=== PATIENT | male | born 1965 | race Caucasian/White ===

== ENCOUNTER → 2017-02-09 | Outpatient (CLI) | payer BC ==
--- NOTE | 2017-02-09 08:41 | REP ---
Chest x-ray: Two views. History: Cough . Comparison study: No comparison study . Findings: The lungs are well inflated and free of infiltrate. The pleural angles are sharp. The heart size is normal. Pulmonary vasculature is not increased. No significant bony abnormality is seen. There are some degenerative changes in the thoracic spine. Impression: Negative chest x-ray. Signed by Ramos Odom MD 02/09/2017 08:33 A
[2017-02-09 09:05] LABS: BASO % 0.6 % (0.0-1.0); EOS # 0.3 K/mm3 (0.0-0.50); EOS % 4.8 % (0.0-3.0); LARGE UNSTAINED CELL # 0.2 K/mm3 (0.0-0.4); LYMPH # 2.3 K/mm3 (1.5-4.5); LYMPH % 30.8 % (24.0-44.0); MEAN CORPUSCULAR HEMOGLOBIN 33.2 pg (27.0-33.0); MEAN CORPUSCULAR HGB CONC 34.1 g/dl (32.0-36.5); MEAN CORPUSCULAR VOLUME 97.2 fl (80.0-96.0); MONO # 0.3 K/mm3 (0.0-0.8); MONO % 4.8 % (0.0-5.0); NEUTROPHILS # 3.8 K/mm3 (1.8-7.7); PLATELET COUNT, AUTOMATED 221 k/mm3 (150-450); RED CELL DISTRIBUTION WIDTH 11.6 % (11.5-14.5); WHITE BLOOD COUNT 6.7 K/mm3 (4.0-10.0)
[2017-02-09 09:38] LABS: ALBUMIN 3.4 GM/DL (3.2-5.2); ALBUMIN/GLOBULIN RATIO 1.06 (1.00-1.93); ALKALINE PHOSPHATASE 66 U/L (45-117); ALT/SGPT 32 U/L (12-78); ANION GAP 6 MEQ/L (8-16); AST/SGOT 20 U/L (15-37); BILIRUBIN,TOTAL 0.5 MG/DL (0.2-1.0); BLOOD UREA NITROGEN 12 MG/DL (7-18); CALCIUM LEVEL 8.8 MG/DL (8.5-10.1); CARBON DIOXIDE LEVEL 30 MEQ/L (21-32); CHLORIDE LEVEL 106 MEQ/L (98-107); CHOLESTEROL LEVEL 232 MG/DL (<200); CREATININE FOR GFR 0.88 MG/DL (0.70-1.30); FREE T4 0.74 NG/DL (0.76-1.46); GLOMERULAR FILTRATION RATE > 60.0 (>56); GLUCOSE, FASTING 98 MG/DL (70-105); POTASSIUM SERUM 4.3 MEQ/L (3.5-5.1); SODIUM LEVEL 142 MEQ/L (136-145); TOTAL PROTEIN 6.6 GM/DL (6.4-8.2); TRIGLYCERIDES LEVEL 128 MG/DL (<150)
== END ==
LOC: M LAB 08:07
PROVIDERS: ATTEND Nurse Practitioner Family
DX: Z00.00 Encounter for general adult medical examination without abnormal findings (principal); R05 Cough; R63.4 Abnormal weight loss; E78.5 Hyperlipidemia, unspecified; R03.0 Elevated blood-pressure reading, without diagnosis of hypertension; Z87.891 Personal history of nicotine dependence

== ENCOUNTER → 2017-03-27 | Outpatient (CLI) | payer BC ==
[~2017-03-27] VITALS: Ht 175.3 cm; Wt 70.3 kg
[~2017-03-27] MED LIST: ATOR40TA PO; NS 1,000 ML IV SCH
--- NOTE | 2017-03-27 12:31 | ROOR ---
Patient Name: Trent Florez Procedure Date: 03/27/2017 12:07 PM Date of : 1965 Age: 51 Room: [facility] Gender: Male Note Status: Finalized Procedure: Upper GI endoscopy Indications: Dysphagia, Heartburn Providers: Pancho BEE MD Referring MD: Priscilla Burroughs NP Requesting Provider: Medicines: Monitored Anesthesia Care Complications: No immediate complications. Procedure: Pre-Anesthesia Assessment: - The heart rate, respiratory rate, oxygen saturations, blood pressure, adequacy of pulmonary ventilation, and response to care were monitored throughout the procedure. The Endoscope was introduced through the mouth, and advanced to the second part of duodenum. The upper GI endoscopy was accomplished without difficulty. The patient tolerated the procedure well. Findings: The examined esophagus was normal. No endoscopic abnormality was evident in the esophagus to explain the patient's complaint of dysphagia. It was decided, however, to proceed with dilation of the entire esophagus. The scope was withdrawn. Dilation was performed with a Griffin dilator with no resistance at 54 Fr. The dilation site was examined following endoscope reinsertion and showed no change. The entire examined stomach was normal. A single submucosal nodule with a localized distribution was found at the junction of first to second portion of the duodenum. Biopsies were taken with a cold forceps for histology. The exam of the duodenum was otherwise normal. Impression: - Normal esophagus.- No endoscopic esophageal abnormality to explain patient's dysphagia. Esophagus dilated with 54 F griffin dialtor - Normal stomach. - Submucosal nodule (8-10 mm) found in the proximal second portion of the duodenum. Biopsied. - The duodenum was otherwise normal. Recommendation: - Await pathology results. - Observe patient's clinical course. - Telephone endoscopist for pathology results in 2 weeks. Pancho Bee MD Pancho BEE MD 03/27/2017 12:30:39 PM This report has been signed electronically. Number of Addenda: 0 Note Initiated On: 03/27/2017 12:07 PM Estimated Blood Loss: Estimated blood loss: none.
--- NOTE | 2017-03-27 12:41 | ROOR ---
Patient Name: Trent Florez Procedure Date: 03/27/2017 12:08 PM Date of : 1965 Age: 51 Room: [facility] Gender: Male Note Status: Finalized Procedure: Colonoscopy Indications: Screening for colorectal malignant neoplasm Providers: Pancho BEE MD Referring MD: Priscilla Burroughs NP Requesting Provider: Medicines: Monitored Anesthesia Care Complications: No immediate complications. Procedure: Pre-Anesthesia Assessment: - The heart rate, respiratory rate, oxygen saturations, blood pressure, adequacy of pulmonary ventilation, and response to care were monitored throughout the procedure. The Colonoscope was introduced through the anus and advanced to the cecum, identified by appendiceal orifice and ileocecal valve. The colonoscopy was performed without difficulty. The patient tolerated the procedure well. The quality of the bowel preparation was good. Findings: The perianal and digital rectal examinations were normal. Small Internal Hemorrhoids. The entire examined colon appeared normal on direct and retroflexion views. Impression: - Small Internal Hemorrhoids. - The colon is normal on direct and retroflexion views. - No specimens collected. Recommendation: - Repeat colonoscopy in 10 years for screening purposes. Pancho Bee MD Pancho BEE MD 03/27/2017 12:40:40 PM This report has been signed electronically. Number of Addenda: 0 Note Initiated On: 03/27/2017 12:08 PM Estimated Blood Loss: Estimated blood loss: none.
[2017-03-27 13:05] VITALS: BP 146/85
== END | disposition home or self-care (01) ==
LOC: M OPP 11:40
PROVIDERS: ATTEND Internal Medicine Gastroenterology
DX: Z12.11 Encounter for screening for malignant neoplasm of colon (principal); K64.8 Other hemorrhoids; R13.10 Dysphagia, unspecified; R12 Heartburn; K31.89 Other diseases of stomach and duodenum; E78.5 Hyperlipidemia, unspecified; F41.9 Anxiety disorder, unspecified; G47.9 Sleep disorder, unspecified; Z87.891 Personal history of nicotine dependence; Z79.899 Other long term (current) drug therapy
CPT/HCPCS: 43239; 43450; 88305; 99156; 99157; G0121

== ENCOUNTER → 2017-04-13 | Outpatient (CLI) | payer BC ==
[~2017-04-13] MED LIST changes: -NS 1,000 ML IV SCH
[2017-04-13 17:36] LABS: ALBUMIN 3.6 GM/DL (3.2-5.2); ALBUMIN/GLOBULIN RATIO 1.09 (1.00-1.93); ALKALINE PHOSPHATASE 79 U/L (45-117); ALT/SGPT 48 U/L (12-78); ANION GAP 5 MEQ/L (8-16); AST/SGOT 20 U/L (15-37); BILIRUBIN,TOTAL 0.6 MG/DL (0.2-1.0); BLOOD UREA NITROGEN 7 MG/DL (7-18); CALCIUM LEVEL 8.8 MG/DL (8.5-10.1); CARBON DIOXIDE LEVEL 31 MEQ/L (21-32); CHLORIDE LEVEL 105 MEQ/L (98-107); CREATININE FOR GFR 0.88 MG/DL (0.70-1.30); GLOMERULAR FILTRATION RATE > 60.0 (>56); GLUCOSE, FASTING 73 MG/DL (70-105); POTASSIUM SERUM 4.4 MEQ/L (3.5-5.1); SODIUM LEVEL 141 MEQ/L (136-145); TOTAL PROTEIN 6.9 GM/DL (6.4-8.2)
== END ==
LOC: M WUC 09:11
PROVIDERS: ATTEND Nurse Practitioner Family
DX: Z12.5 Encounter for screening for malignant neoplasm of prostate (principal); E78.5 Hyperlipidemia, unspecified
CPT/HCPCS: 36415; 80053; G0103

== ENCOUNTER → 2017-04-25 | Outpatient (CLI) | payer BC ==
[~2017-04-25] MED LIST changes: +E-Z-GAS II EFFERVESCENT PACKET (SODIUM BICARB./CITRIC ACID/SIMETHICONE) As Ordered ONE; +E-Z-HD 98% w/w 340GM SUSP BTL As Ordered ONE; +E-Z-PAQUE 96% w/w SUSP 176GM BTL As Ordered ONE
== END ==
LOC: M RAD 08:54
PROVIDERS: ATTEND Physician Assistant Medical
DX: R13.10 Dysphagia, unspecified (principal)

== ENCOUNTER → 2017-04-28 | Outpatient (CLI) | payer BC ==
--- NOTE | 2017-04-28 16:53 | REP ---
Esophagram The procedure was performed under the direct supervision of Dr. Odom. The images were reviewed with Dr. Odom. A single view PA chest x-ray is submitted as a assembler tubing film. The superior mediastinal structures are midline. The heart size is within normal limits. The lungs are clear. Liquid barium and gas producing granules were given in the erect position as well as liquid barium in the prone oblique positions in order to perform a double contrast esophagram examination. The oral and pharyngeal stages of deglutition are unremarkable. Esophageal transport is prompt and efficient and there is no esophagitis, stricture, mucosal ring or hiatal hernia. Gastroesophageal reflux is not demonstrated on this examination. Impression: essentially unremarkable double contrast esophagram examination. 58 seconds of fluoro time was utilized for this procedure. Reviewed by SOHAIL Freire 04/28/2017 03:22 PSigned by Ramos Odom MD 04/28/2017 04:43 P
== END ==
LOC: M RAD 07:55
PROVIDERS: ATTEND Physician Assistant Medical
DX: R13.10 Dysphagia, unspecified (principal)

== ENCOUNTER → 2017-05-02 | Outpatient (CLI) | payer BC ==
[~2017-05-02] VITALS: Ht 175.3 cm; Wt 74.4 kg
[~2017-05-02] MED LIST changes: -E-Z-GAS II EFFERVESCENT PACKET (SODIUM BICARB./CITRIC ACID/SIMETHICONE) As Ordered ONE; -E-Z-HD 98% w/w 340GM SUSP BTL As Ordered ONE; -E-Z-PAQUE 96% w/w SUSP 176GM BTL As Ordered ONE; +LIDOCAINE 2% INJ 100 MG/5 ML SDV (FOR ANES.) As Ordered ONE; +NS 1,000 ML IV ONE; +PROPOFOL 200 MG/20 ML VIAL As Ordered ONE; +fentaNYL 100 MCG/2 ML INJECTION (J3010) As Ordered ONE
--- NOTE | 2017-05-02 12:00 | ROOR ---
Patient Name: Trent Florez Procedure Date: 05/02/2017 11:34 AM Date of : 1965 Age: 51 Room: [facility] Gender: Male Note Status: Finalized Procedure: Upper GI endoscopy Indications: Dysphagia Providers: Pancho BEE MD Referring MD: Priscilla Burroughs NP Requesting Provider: Medicines: Monitored Anesthesia Care Complications: No immediate complications. Procedure: Pre-Anesthesia Assessment: - The heart rate, respiratory rate, oxygen saturations, blood pressure, adequacy of pulmonary ventilation, and response to care were monitored throughout the procedure. The Endoscope was introduced through the mouth, and advanced to the second part of duodenum. The upper GI endoscopy was accomplished without difficulty. The patient tolerated the procedure well. Findings: No endoscopic abnormality was evident in the esophagus to explain the patient's complaint of dysphagia. It was decided, however, to proceed with dilation of the entire esophagus. The scope was withdrawn. Dilation was performed with a Griffin dilator with no resistance at 56 Fr. The dilation site was examined and showed no change. This was biopsied with a cold forceps for evaluation of eosinophilic esophagitis. The entire examined stomach was normal. A single 8 to 9 mm mucosal nodule with a localized distribution was found in the second portion of the duodenum. Biopsies were taken with a cold forceps for histology. Impression: - Normal esophagus. - No endoscopic esophageal abnormality to explain patient's dysphagia. Esophagus dilated with 56 F griffin dilator and Biopsied. - Normal stomach. - Mucosal/submucosal nodule again found in the duodenum. Unroofed and re-Biopsied. Recommendation: - Observe patient's clinical course. - Telephone endoscopist for pathology results in 2 weeks. - Continue present medications. Pancho Bee MD Pancho BEE MD 05/02/2017 12:00:14 PM This report has been signed electronically. Number of Addenda: 0 Note Initiated On: 05/02/2017 11:34 AM Estimated Blood Loss: Estimated blood loss: none.
[2017-05-02 12:25] VITALS: BP 13/84
== END | disposition home or self-care (01) ==
LOC: M OPP 10:41
PROVIDERS: ATTEND Internal Medicine Gastroenterology
DX: R13.10 Dysphagia, unspecified (principal); K31.89 Other diseases of stomach and duodenum; E78.5 Hyperlipidemia, unspecified; Z86.59 Personal history of other mental and behavioral disorders; F17.210 Nicotine dependence, cigarettes, uncomplicated; Z79.899 Other long term (current) drug therapy
CPT/HCPCS: 43239; 43450; 88305; J3010

== ENCOUNTER → 2017-06-11 | Outpatient (CLI) | payer BC ==
[~2017-06-11] MED LIST changes: -ATOR40TA PO; +ATOR40TA75 PO; +GASTROGRAFIN SOLUTION 30ML (Q9963) As Ordered ONE; +ISOVUE-370 76% 100ML VIAL (Q9967) As Ordered ONE; -LIDOCAINE 2% INJ 100 MG/5 ML SDV (FOR ANES.) As Ordered ONE; -NS 1,000 ML IV ONE; -PROPOFOL 200 MG/20 ML VIAL As Ordered ONE; -fentaNYL 100 MCG/2 ML INJECTION (J3010) As Ordered ONE
--- NOTE | 2017-06-11 16:22 | REP ---
CT abdomen pelvis without and with IV contrast: There are no comparisons. Within the visualized lung clark. There are is an 8 mm nodule in the posterior sulcus of the left lung on image 13 and an 8 ml pleural-based nodule in the posterior sulcus of the right lung. These nodules are not visible on the PA and lateral plain film study dated 02/09/2017. The hepatic parenchyma is homogeneous on both phases of the study. The gallbladder, pancreas and spleen are normal size, homogeneous and unremarkable. The adrenals are unremarkable. The kidneys are unremarkable. The abdominal aorta is unremarkable. There is no retroperitoneal adenopathy. There is no mesenteric adenopathy or ascites. There is no bowel distension. Pelvis: The appendix has a normal appearance. The bladder is unremarkable. Prostatic of this are incidentally noted. There is no adenopathy or ascites. There are no lytic, blastic or destructive skeletal changes. Impression: There is a nodule in the lower lobe of the left lung and a nodule in the lower lobe of the right lung. I would recommend chest CT for follow-up. Otherwise, essentially negative CT of the abdomen and pelvis. Signed by Fausto Burris MD 06/11/2017 04:14 P
== END ==
LOC: M RAD 13:45
PROVIDERS: ATTEND Physician Assistant Medical
DX: R63.4 Abnormal weight loss (principal); R91.8 Other nonspecific abnormal finding of lung field; R10.10 Upper abdominal pain, unspecified; R63.0 Anorexia
CPT/HCPCS: 74178; Q9963; Q9967

== ENCOUNTER → 2017-07-02 | Outpatient (CLI) | payer BC ==
[~2017-07-02] MED LIST changes: -GASTROGRAFIN SOLUTION 30ML (Q9963) As Ordered ONE
--- NOTE | 2017-07-02 15:36 | REP ---
CT of the chest with IV contrast: Comparison is a CT of the abdomen, dated 06/11/2017. There is a nodule in the deep posterior sulcus of the right lung measuring 8 mm in diameter. Just lateral to this is a smaller nodule measuring 3 mm in diameter. There is a nodule in the deep sulcus of the left lung measuring 9 mm in diameter. There are no other nodules or masses. There are no acute infiltrates or effusions. There is a borderline enlarged subcarinal mediastinal node measuring a 1 cm in short axis diameter. There is no other mediastinal adenopathy. There is no hilar adenopathy. The there is no axillary adenopathy. The thoracic aorta is unremarkable. Cardiac size is normal. The visualized upper abdominal contents are unremarkable. The largest of the lung nodule is a category 4A lesion with probability of malignancy 5- 15%. Recommendation is for 3-month follow-up chest CT. Consider PET scan. Signed by Fausto Burris MD 07/02/2017 03:26 P
== END ==
LOC: M RAD 14:36
PROVIDERS: ATTEND Physician Assistant Medical
DX: R91.8 Other nonspecific abnormal finding of lung field (principal); R93.3 Abnormal findings on diagnostic imaging of other parts of digestive tract; R63.4 Abnormal weight loss; R63.0 Anorexia
CPT/HCPCS: 71260; Q9967

== ENCOUNTER → 2017-10-10 | Outpatient (CLI) | payer BC ==
[~2017-10-10] MED LIST changes: -ISOVUE-370 76% 100ML VIAL (Q9967) As Ordered ONE
--- NOTE | 2017-10-15 10:16 | REP ---
Clinical: Follow up pulmonary nodule. History of emphysema. Comparison: 07/02/2017. Findings: Mild chronic interstitial changes and bronchiectasis with few small scattered bullae and blebs remain essentially unchanged. A 3 mm noncalcified nodule along the periphery of the right upper lobe (image 48) is again identified and essentially stable. 8 mm and 3 mm noncalcified nodules in the deep right sulcus along with 9 mm noncalcified nodule in the left lower lobe (image 82) remains stable. No new acute nodule or mass lesion is appreciated. No consolidation, effusion, pneumothorax. Mediastinal and hilar lymph nodes including subcarinal lymph node measuring approximately 9 mm remains stable and nonspecific. Mild atherosclerotic changes of the thoracic aorta noted without aneurysm. Heart and pericardium are normal. Surrounding musculoskeletal structures without focal osseous abnormality. Impression: 1. Few noncalcified nodules as described above measuring up to 9 mm remain relatively stable on short-term follow-up evaluation. Consider reevaluation in 9-12 months to further confirm benignity/chronicity. 2. No new, acute mediastinal or pleuroparenchymal process identified. Signed by Quintin Stephens MD 10/15/2017 10:07 A
== END ==
LOC: M RAD 15:43
PROVIDERS: ATTEND Internal Medicine Pulmonary Disease
DX: R91.8 Other nonspecific abnormal finding of lung field (principal)

== ENCOUNTER → 2018-04-22 | Outpatient (CLI) | payer BC | LOC: M RAD 17:00 | DX: J43.1 Panlobular emphysema (principal) ==

== ENCOUNTER → 2019-04-29 | Outpatient (CLI) | payer BC ==
--- NOTE | 2019-04-30 05:56 | REP ---
Clinical: Follow up abnormal lung findings. Technique: Axial noncontrast images from the thoracic inlet to the upper abdomen with coronal and sagittal re-formations. Comparison: 04/22/2018, 07/02/2017. Findings: 4 mm noncalcified nodule along the periphery of the right upper lobe (image 45) remains stable. Bilateral lower lobe pulmonary nodules measuring approximately 8 mm demonstrate small punctate elements of central calcification and remain essentially stable through 07/02/2017. No acute consolidation, new significant nodule, or mass lesion appreciated. Lung clark are essentially clear. No effusion. No pneumothorax. Tracheobronchial tree is patent. No adenopathy. Atherosclerotic changes to the thoracic aorta without aneurysm. No cardiomegaly or pericardial effusion. Surrounding musculoskeletal structures are intact. Impression: 1. Three stable pulmonary nodules as described above appear benign and likely related to prior granulomas disease. Findings are stable over approximately 2-year. And require no further investigation. 2. No new significant area of consolidation, nodule or mass lesion appreciated. Electronically Signed by Quintin Stephens MD 04/30/2019 05:48 A
== END ==
LOC: M RAD 15:51
PROVIDERS: ATTEND Internal Medicine Pulmonary Disease
DX: R91.8 Other nonspecific abnormal finding of lung field (principal)

== ENCOUNTER 2020-01-20 08:47 | Emergency (ER) | payer BC ==
[~2020-01-20] VITALS: Ht 175.3 cm; Wt 71.5 kg
[2020-01-20] MEDS ORDERED: BREO1INH3 INH (09:10)
--- NOTE | 2020-01-20 09:34 | REP ---
Portable chest x-ray: Single view. History: Chest pain. Comparison study: February 09, 2017. Findings: Lungs are well inflated and clear. The pleural angles are sharp. Heart size is normal. EKG electrodes are seen. Pulmonary vasculature is not increased. Impression: No active disease. Electronically Signed by Ramos Odom MD 01/20/2020 09:26 A
[2020-01-20 09:48] LABS: BASO # 0.1 10^3/uL (0.0-0.2); BASO % 0.7 % (0.0-1.0); EOS # 0.2 10^3/uL (0.0-0.5); EOS % 2.3 % (0.0-3.0); HEMATOCRIT 44.2 % (42.0-52.0); HEMOGLOBIN 14.5 g/dl (13.5-17.5); LYMPH # 1.9 10^3/uL (1.5-5.0); LYMPH % 25.6 % (24.0-44.0); MEAN CORPUSCULAR HEMOGLOBIN 31.4 pg (27.0-33.0); MEAN CORPUSCULAR HGB CONC 32.8 g/dl (32.0-36.5); MEAN CORPUSCULAR VOLUME 95.7 fl (80.0-96.0); MONO # 0.6 10^3/uL (0.0-0.8); MONO % 7.6 % (0.0-5.0); NEUTROPHILS # 4.8 10^3/uL (1.5-8.5); NEUTROPHILS % 63.5 % (36.0-66.0); PLATELET COUNT, AUTOMATED 305 10^3/uL (150-450); RED BLOOD COUNT 4.62 10^6/uL (4.30-6.10); WHITE BLOOD COUNT 7.5 10^3/uL (4.0-10.0)
[2020-01-20 10:23] LABS: ALBUMIN 3.5 GM/DL (3.2-5.2); ALT/SGPT 22 U/L (12-78); BILIRUBIN,DIRECT < 0.1 MG/DL (0.0-0.2); BILIRUBIN,TOTAL 0.3 MG/DL (0.2-1.0); BLOOD UREA NITROGEN 8 MG/DL (7-18); CALCIUM LEVEL 9.1 MG/DL (8.5-10.1); CARBON DIOXIDE LEVEL 28 MEQ/L (21-32); CHLORIDE LEVEL 103 MEQ/L (98-107); CK-MB VALUE MASS < 1.0 NG/ML (<3.6); CPK CREATINE PHOSPHOKINASE 147 U/L (39-308); CREATININE FOR GFR 0.77 MG/DL (0.70-1.30); GLOMERULAR FILTRATION RATE > 60.0 (>56); GLUCOSE, FASTING 99 MG/DL (70-100); LIPASE 78 U/L (73-393); MB/CK RELATIVE INDEX 0.68 (< OR =4); POTASSIUM SERUM 4.4 MEQ/L (3.5-5.1); SODIUM LEVEL 137 MEQ/L (136-145); TOTAL PROTEIN 7.1 GM/DL (6.4-8.2); TROPONIN I < 0.02 NG/ML (< 0.10)
[2020-01-20] MEDS ORDERED: ISOVUE-370 76% 100ML VIAL (Q9967) As Ordered ONE (10:36)
--- NOTE | 2020-01-20 11:19 | REP ---
CT PULMONARY ANGIOGRAM: With IV contrast. HISTORY: Rule out pulmonary embolus. Comparison studies: Comparison CT with IV contrast July 02, 2017. CONTRAST DOSE: 75 mL of Isovue [address] TECHNIQUE: Helical scanning is acquired and overlapping 1.5 mm and contiguous 3 mm axial images are reformatted. In addition, maximum intensity projection and multiplanar re-formation images are generated in sagittal and coronal imaging projections. CT PULMONARY ANGIOGRAPHIC FINDINGS: There is good opacification of the pulmonary arterial tree. There is no filling defect or vessel cutoff to suggest pulmonary embolus. Thoracic aorta enhances homogeneously. No aneurysm or dissection is seen. There is some multifocal moderate atherosclerotic vascular calcification. There is no evidence of pleural or pericardial effusion. No hilar or mediastinal mass or adenopathy is observed. No adrenal lesion is seen. The visualized upper abdominal structures are unremarkable. No bony destructive lesion is seen. On lung window settings, there is a calcified granuloma in the right lung apex. There are stable noncalcified nodules one in each lower lobe in the posterior lung gutter bilaterally unchanged from July 02, 2017. No significant pulmonary nodule is seen. IMPRESSION: No CT evidence of pulmonary embolus. No active cardiopulmonary disease seen. Vascular calcification. Stable lung nodules. Electronically Signed by Ramos Odom MD 01/20/2020 02:31 P
[2020-01-20 12:49] LABS: CK-MB VALUE MASS < 1.0 NG/ML (<3.6); CPK CREATINE PHOSPHOKINASE 172 U/L (39-308); MB/CK RELATIVE INDEX 0.58 (< OR =4); TROPONIN I < 0.02 NG/ML (< 0.10)
[2020-01-20 15:03] LABS: CK-MB VALUE MASS < 1.0 NG/ML (<3.6); CPK CREATINE PHOSPHOKINASE 118 U/L (39-308); MB/CK RELATIVE INDEX 0.85 (< OR =4); TROPONIN I < 0.02 NG/ML (< 0.10)
[2020-01-20 15:15] VITALS: BP 135/74
--- NOTE | 2020-01-20 23:04 | ECGEPIP ---
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
--- NOTE | 2020-01-20 23:07 | ECGEPIP ---
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
--- NOTE | 2020-01-20 23:17 | ECGEPIP ---
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
== END 2020-01-20 16:09 | disposition home or self-care (01) ==
LOC: M ED 08:47
DX: R07.89 Other chest pain (principal); I10 Essential (primary) hypertension; J44.9 Chronic obstructive pulmonary disease, unspecified; R91.8 Other nonspecific abnormal finding of lung field; Z87.891 Personal history of nicotine dependence
CPT/HCPCS: 71045; 71275; 80048; 80076; 82550; 82553; 83690; 84443; 84484; 85025; 93005; 93041; 94760; 99285; Q9967

== ENCOUNTER 2020-05-27 13:05 | Emergency (ER) | payer BC ==
[~2020-05-27] VITALS: Ht 175.3 cm; Wt 74.8 kg
[~2020-05-27 13:05] MED LIST changes: +BREO1INH3 INH
[2020-05-27] MEDS ORDERED: methylPREDNISolone INJ 125 MG/2 ML VIAL (J2930) IV ONE (13:30)
[2020-05-27] MEDS ORDERED: FAMOTIDINE INJ 20MG/2ML VIAL (S0028 PER 1) IVP ONE (13:30)
[2020-05-27] MEDS ORDERED: NS 1,000 ML IV ONE (13:30)
[2020-05-27] MEDS ORDERED: diphenhydrAMINE 50MG/ML VIAL (J1200) IV ONE (13:30)
[2020-05-27 14:02] LABS: BASO % 0.2 % (0.0-1.0); EOS % 0.3 % (0.0-3.0); HEMATOCRIT 49.8 % (42.0-52.0); HEMOGLOBIN 17.2 g/dl (13.5-17.5); LYMPH % 16.8 % (24.0-44.0); MEAN CORPUSCULAR HEMOGLOBIN 32.3 pg (27.0-33.0); MEAN CORPUSCULAR HGB CONC 34.5 g/dl (32.0-36.5); MEAN CORPUSCULAR VOLUME 93.6 fl (80.0-96.0); MONO # 0.5 10^3/uL (0.0-0.8); NEUTROPHILS # 9.3 10^3/uL (1.5-8.5); NEUTROPHILS % 78.2 % (36.0-66.0); PLATELET COUNT, AUTOMATED 307 10^3/uL (150-450); RED BLOOD COUNT 5.32 10^6/uL (4.30-6.10); WHITE BLOOD COUNT 11.9 10^3/uL (4.0-10.0)
[2020-05-27 14:23] LABS: BLOOD UREA NITROGEN 10 MG/DL (7-18); CALCIUM LEVEL 8.8 MG/DL (8.5-10.1); CARBON DIOXIDE LEVEL 23 MEQ/L (21-32); CHLORIDE LEVEL 105 MEQ/L (98-107); GLOMERULAR FILTRATION RATE > 60.0 (>56); GLUCOSE, FASTING 154 MG/DL (70-100); POTASSIUM SERUM 3.5 MEQ/L (3.5-5.1); SODIUM LEVEL 135 MEQ/L (136-145)
[2020-05-27 14:31] VITALS: BP 171/90
[2020-05-27] MEDS ORDERED: PRED10TA2 PO (14:41)
[2020-05-27] MEDS ORDERED: PEPC1TAB5 PO (14:41)
--- NOTE | 2020-05-27 16:48 | ECGEPIP ---
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
== END 2020-05-27 14:52 | disposition home or self-care (01) ==
LOC: M ED 13:05
DX: T63.441A Toxic effect of venom of bees, accidental (unintentional), initial encounter (principal); L29.9 Pruritus, unspecified; R21 Rash and other nonspecific skin eruption; R00.0 Tachycardia, unspecified; R94.31 Abnormal electrocardiogram [ECG] [EKG]; I10 Essential (primary) hypertension; E78.5 Hyperlipidemia, unspecified; Z79.899 Other long term (current) drug therapy
CPT/HCPCS: 80048; 85025; 93005; 93041; 94760; 96361; 96374; 96375; 99284; J1200; J2930

== ENCOUNTER → 2020-05-30 | Outpatient (REF) | payer BC ==
[~2020-05-30] MED LIST changes: +PEPC1TAB5 PO; +PRED10TA2 PO
== END ==
LOC: M LAB REF 08:11
PROVIDERS: ATTEND Surgery
DX: L72.3 Sebaceous cyst (principal)

== ENCOUNTER → 2020-11-23 | Outpatient (CLI) | payer SELFPAY | LOC: M LABSMTC 13:43 | PROVIDERS: ATTEND Pediatrics | DX: Z20.828 Contact with and (suspected) exposure to other viral communicable diseases (principal) ==

== ENCOUNTER → 2021-11-28 | Outpatient (CLI) | payer BC ==
--- NOTE | 2021-11-28 08:19 | REP ---
INDICATION: NICOTINE DEPENDENCE, CIGARETTES, W OTH DISORDERS COMPARISON: Multiple examinations through 04/22/2018 TECHNIQUE: Axial noncontrast images from the thoracic inlet to the upper abdomen using low-dose lung screening technique (LDCT). FINDINGS: Lung clark demonstrate mild emphysematous changes. Few scattered noncalcified nodules measuring up to 7 mm in the bilateral lung bases remain stable. No acute consolidation, new suspicious nodule, or mass lesion. No effusion. No pneumothorax. Tracheobronchial tree is patent. IMPRESSION: Lung-RADS category 2. Stable noncalcified nodules up to 7 mm. Management recommendations include annual low-dose CT surveillance. <Electronically signed by Quintin Stephens > 11/28/21 0816
== END ==
LOC: M RAD 07:37
PROVIDERS: ATTEND Internal Medicine Pulmonary Disease
DX: Z12.2 Encounter for screening for malignant neoplasm of respiratory organs (principal); F17.218 Nicotine dependence, cigarettes, with other nicotine-induced disorders; J43.9 Emphysema, unspecified; R91.8 Other nonspecific abnormal finding of lung field

== ENCOUNTER → 2022-10-07 | Outpatient (REF) | payer OTHER | LOC: M LAB REF 16:16 | PROVIDERS: ATTEND Internal Medicine | DX: Z11.59 Encounter for screening for other viral diseases (principal) ==

== ENCOUNTER → 2022-12-16 | Outpatient (CLI) | payer OTHER | LOC: M RAD 11:38 | PROVIDERS: ATTEND Internal Medicine | DX: G45.3 Amaurosis fugax (principal) ==

== ENCOUNTER → 2022-12-20 | Outpatient (CLI) | payer OTHER | LOC: M RAD 13:26 | PROVIDERS: ATTEND Internal Medicine Pulmonary Disease | DX: Z12.2 Encounter for screening for malignant neoplasm of respiratory organs (principal); F17.218 Nicotine dependence, cigarettes, with other nicotine-induced disorders; R91.8 Other nonspecific abnormal finding of lung field ==

== ENCOUNTER 2023-05-12 15:39 | Emergency (ER) | payer OTHER ==
[~2023-05-12] VITALS: Ht 175.3 cm; Wt 77.3 kg
[2023-05-12] MEDS ORDERED: methocarbamoL 500 MG TAB PO ONE (18:55)
[2023-05-12] MEDS ORDERED: predniSONE 20 MG TAB PO ONE (18:55)
[2023-05-12] MEDS ORDERED: KETOROLAC 60MG 2ML VIAL IM ONE (18:55)
[2023-05-12] MEDS ORDERED: IBUP-1022 PO (20:16)
[2023-05-12] MEDS ORDERED: METH-1164 PO (20:16)
[2023-05-12] MEDS ORDERED: PRED20TA PO (20:16)
[2023-05-12 20:33] VITALS: BP 160/85; TEMP 98.8; O2SAT 98
== END 2023-05-12 20:25 | disposition home or self-care (01) ==
LOC: M ED 15:39
DX: M54.50 Low back pain, unspecified (principal); W24.0XXA Contact with lifting devices, not elsewhere classified, initial encounter; Y99.0 Civilian activity done for income or pay; I10 Essential (primary) hypertension; E78.5 Hyperlipidemia, unspecified; J44.9 Chronic obstructive pulmonary disease, unspecified; Z79.899 Other long term (current) drug therapy
CPT/HCPCS: 72110; 96372; 99283; J1885; J7512

== ENCOUNTER → 2023-10-08 | Outpatient (REF) | payer OTHER ==
[~2023-10-08] MED LIST changes: +IBUP-1022 PO; +METH-1164 PO; +PRED20TA PO
== END ==
LOC: M LAB REF 12:25
PROVIDERS: ATTEND Internal Medicine
DX: R19.4 Change in bowel habit (principal)

== ENCOUNTER → 2023-10-28 | Outpatient (CLI) | payer OTHER | LOC: M WUC 14:36 | PROVIDERS: ATTEND Internal Medicine | DX: R19.7 Diarrhea, unspecified (principal) ==

== ENCOUNTER → 2023-10-29 | Outpatient (REF) | payer OTHER | LOC: M LAB REF 10:10 | PROVIDERS: ATTEND Internal Medicine | DX: R19.7 Diarrhea, unspecified (principal) ==

== ENCOUNTER → 2024-01-16 | Outpatient (CLI) | payer OTHER | LOC: M RAD 08:02 | PROVIDERS: ATTEND Internal Medicine Pulmonary Disease | DX: Z12.2 Encounter for screening for malignant neoplasm of respiratory organs (principal); F17.218 Nicotine dependence, cigarettes, with other nicotine-induced disorders ==

== ENCOUNTER → 2024-02-18 | Outpatient (CLI) | payer OTHER ==
[2024-02-18 13:43] LABS: THYROID STIMULATING HORMONE 1.155 uIU/ML (0.55-4.78)
[2024-02-18 13:44] LABS: FREE T4 0.98 NG/DL (0.89-1.76)
[2024-02-18 17:54] LABS: IMMUNOGLOBULIN A 248.2 MG/DL (40-350)
== END ==
LOC: M LAB 12:38
PROVIDERS: ATTEND Physician Assistant Medical
DX: R19.4 Change in bowel habit (principal)

== ENCOUNTER → 2024-02-19 | Outpatient (REF) | payer OTHER ==
[2024-02-24 00:07] LABS: CALPROTECTIN STOOL 6 ug/g (0-120); FATS NEUTRAL Normal (.); FATS TOTAL Normal (.); PANCREATIC ELASTASE STOOL 100 (>200)
== END ==
LOC: M LAB REF 09:11
PROVIDERS: ATTEND Physician Assistant Medical
DX: R19.4 Change in bowel habit (principal)

== ENCOUNTER 2024-04-08 11:48 | Emergency (ER) | payer OTHER ==
[~2024-04-08] VITALS: Ht 170.2 cm; Wt 78.0 kg
[2024-04-08 11:49] VITALS: BP 172/81; TEMP 98.6; O2SAT 98
[2024-04-08] MEDS ORDERED: AMLO1TAB25 (11:59)
[2024-04-08] MEDS ORDERED: ATOR1TAB21 (11:59)
== END 2024-04-08 14:24 | disposition left against medical advice (07) ==
LOC: M ED 11:48
DX: Z53.21 Procedure and treatment not carried out due to patient leaving prior to being seen by health care provider (principal)

== ENCOUNTER → 2024-06-29 | Outpatient (REF) | payer OTHER ==
[~2024-06-29] MED LIST changes: +AMLO1TAB25 PO; +ATOR1TAB21 PO; +CYCL-707 PO
== END ==
LOC: M LAB REF 12:11
PROVIDERS: ATTEND Physician Assistant
DX: R50.9 Fever, unspecified (principal)

== ENCOUNTER → 2025-02-04 | Outpatient (CLI) | payer OTHER | LOC: M RAD 06:42 | PROVIDERS: ATTEND Internal Medicine Pulmonary Disease | DX: R91.8 Other nonspecific abnormal finding of lung field (principal); J84.10 Pulmonary fibrosis, unspecified; F17.218 Nicotine dependence, cigarettes, with other nicotine-induced disorders ==

== ENCOUNTER → 2025-02-09 | Outpatient (REF) | payer OTHER | LOC: M LAB REF 09:31 | PROVIDERS: ATTEND Nurse Practitioner Family | DX: R19.7 Diarrhea, unspecified (principal) ==

== ENCOUNTER → 2025-09-19 | Outpatient (REF) | payer OTHER ==
[~2025-09-19] MED LIST changes: -IBUP-1022 PO; +IBUP600T42 PO
== END ==
LOC: M LAB REF 12:17
PROVIDERS: ATTEND Internal Medicine
DX: R19.4 Change in bowel habit (principal); R19.7 Diarrhea, unspecified